=== PATIENT | female | born 1955 ===

== ENCOUNTER 2017-06-14 11:00 | Outpatient (CLI) | payer OTHER ==
[~2017-06-14] VITALS: Ht 121.9 cm; Wt 59.9 kg
== END 2017-06-14 11:15 | disposition home or self-care (01) ==
LOC: OFIC 805 11:00
DX: H90.3 Sensorineural hearing loss, bilateral (principal); H93.13 Tinnitus, bilateral; H61.23 Impacted cerumen, bilateral; J31.0 Chronic rhinitis

== ENCOUNTER → 2017-06-14 | Outpatient (CLI) | payer OTHER | END | disposition home or self-care (01) | LOC: MRI 12:44 | DX: H90.3 Sensorineural hearing loss, bilateral (principal); H93.13 Tinnitus, bilateral | CPT/HCPCS: 70553; A9579; 70543 ==

== ENCOUNTER 2017-08-16 10:38 | Outpatient (CLI) | payer OTHER ==
[~2017-08-16] VITALS: Ht 121.9 cm; Wt 59.0 kg
== END 2017-08-16 11:00 | disposition home or self-care (01) ==
LOC: OFIC 805 10:38
DX: H90.3 Sensorineural hearing loss, bilateral (principal); H93.13 Tinnitus, bilateral; H61.23 Impacted cerumen, bilateral; J31.0 Chronic rhinitis